=== PATIENT | female | born 1955 | race Caucasian/White ===

== ENCOUNTER → 2016-06-07 | Day surgery (SDC) | payer OTHER ==
[2016-06-06 13:54] VITALS: BMI 28.0
[~2016-06-07] VITALS: Ht 160 cm; Wt 72.7 kg
[~2016-06-07] MED LIST: ALBUAER19 INH; ALUMCHW2 PO; ASPITAB71 PO; FLUO40CA8 PO; FLUT1AER5 INH; LIDOCAINE HCL 2% 2 ML VIAL (20MG/ML) ONE; LIVALO PO; OXYC1CAP5 PO; PANT40TA PO; PROPOFOL IV EMULSION 10 MG/ML 20 ML VIAL IV ONE; RIZA10TA18 PO; SODIUM CHLORIDE 0.9% 500ML 500 ML IV ONE; TOPI25TA99 PO; TRAZ1TAB8 PO
[2016-06-07 08:54] VITALS: Ht 160 cm; Wt 72.7 kg
--- NOTE | 2016-06-07 09:55 | Endo History and Physical ---
History & Physical Date of Service: Jun 07, 2016. Chief Complaint: HEARTBURN AND ACID REFLUX Referring Physician: DR FERNANDEZ History of Present Illness 61 yo CF who presents for colonoscopy secondary to GERD. Past Medical History Asthma, Reflux, Depression Past Surgical History Hx Cardiac Surgery: No Hx Internal Defibrillator: No Hx Pacemaker: No Hx Abdominal Surgery: Yes (CARLOS, TUBAL LIGATION) Hx of Implantable Prosthesis: No Hx Post-Op Nausea and Vomiting: No Hx Cancer Surgery: No Hx Thoracic Surgery: Yes (LUNG BIOPSIES) Hx Orthopedic: Yes (BLT CTR, LT SHOULDER SX, CERVICAL FUSION (GOOD ROM)) Hx Urinary Tract Surgery: No Family History None, IBD Social History Smoking Status: Never Smoker Hx Substance Use: No Hx Alcohol Use: No Allergies Coded Allergies: Penicillins (Verified Allergy, Severe, ANAPHYLAXIS, 06/07/16) RASH,HIVES,BREATHING PROBLEMS Sulfa Drugs (Verified Allergy, Severe, ANAPHYLAXIS, 06/07/16) HIVES,BREATHING PROBLEMS Current Medications Reported Home Medications Medications Dose Route/Sig Max Daily Dose Days Date Category Topamax (Topiramate) 25 Mg Tab 25 Mg PO BID 06/06/16 Reported Protonix (Pantoprazole Sodium) 40 Mg Tab 40 Mg PO BID 06/06/16 Reported Gaviscon (Aluminum Hydroxide-Mag Trisil) 1 Chw Chw 1 Tab PO DIRECTED PRN 06/06/16 Reported [place] (Aspirin Effervescent) 1 Tab Tab 1 Tab PO DIRECTED PRN 06/06/16 Reported Ventolin Inhaler (Albuterol) Aers 2 Puffs INH QID PRN 04/21/15 Reported Flovent Diskus (Fluticasone Propionate (Inhala) 100 Mcg/Blist Aer 1 Puffs INH BID PRN 04/21/15 Reported Maxalt (Rizatriptan Benzoate) 10 Mg Tab 10 Mg PO UD PRN 04/21/15 Reported Oxycodone Hcl 5 Mg Cap 1 Cap PO QID PRN 04/21/15 Reported [Livalo] 4 Mg PO HS 04/21/15 Reported Desyrel (Trazodone Hcl) 100 Mg Tab 100 Mg PO HS 03/25/13 Reported Prozac (Fluoxetine HCl) 40 Mg Cap 40 Mg PO QAM 03/25/13 Reported Vital Signs Weight (Kilograms): 72.73 Height (Feet): 5 Height (Inches): 3 Date Time Temp Pulse Resp B/P Pulse Ox O2 Delivery O2 Flow Rate FiO2 06/07/16 09:05 36.5 74 18 164/72 98 Room Air Physical Exam General Appearance: WD/WN, no apparent distress Respiratory/Chest: Auscultation: breath sounds normal Cardiovascular: Heart Auscultation: RRR Abdomen: Bowel Sounds: normal Inspection & Palpation: soft, non-distended, no tenderness, guarding & rebound Assessment and Plan Assessment: 61 yo CF who presents for EGD secondary to GERD. Plan: Proceed with EGD.
--- NOTE | 2016-06-07 10:35 | Discharge Instructions ---
Endoscopy Patient Instructions Date / Procedure(s) Performed Jun 07, 2016. EGD Allergy Information Coded Allergies: Penicillins (Verified Allergy, Severe, ANAPHYLAXIS, 06/07/16) RASH,HIVES,BREATHING PROBLEMS Sulfa Drugs (Verified Allergy, Severe, ANAPHYLAXIS, 06/07/16) HIVES,BREATHING PROBLEMS Discharge Date / Findings Jun 07, 2016. Pyloric stenosis s/p biopsies Hiatal hernia Evidence of Cody Fundoplication Gastric polyps s/p biopsies Esophageal dilation Medication Instructions OK to resume all medications today as prescribed Reported Home Medications Medications Dose Route/Sig Max Daily Dose Days Date Category Topamax (Topiramate) 25 Mg Tab 25 Mg PO BID 06/06/16 Reported Protonix (Pantoprazole Sodium) 40 Mg Tab 40 Mg PO BID 06/06/16 Reported Gaviscon (Aluminum Hydroxide-Mag Trisil) 1 Chw Chw 1 Tab PO DIRECTED PRN 06/06/16 Reported [place] (Aspirin Effervescent) 1 Tab Tab 1 Tab PO DIRECTED PRN 06/06/16 Reported Ventolin Inhaler (Albuterol) Aers 2 Puffs INH QID PRN 04/21/15 Reported Flovent Diskus (Fluticasone Propionate (Inhala) 100 Mcg/Blist Aer 1 Puffs INH BID PRN 04/21/15 Reported Maxalt (Rizatriptan Benzoate) 10 Mg Tab 10 Mg PO UD PRN 04/21/15 Reported Oxycodone Hcl 5 Mg Cap 1 Cap PO QID PRN 04/21/15 Reported [Livalo] 4 Mg PO HS 04/21/15 Reported Desyrel (Trazodone Hcl) 100 Mg Tab 100 Mg PO HS 03/25/13 Reported Prozac (Fluoxetine HCl) 40 Mg Cap 40 Mg PO QAM 03/25/13 Reported Provider Instructions Activity Restrictions - No exercising or heavy lifting for 24 hours. - Do not drink alcohol the day of the procedure. - Do not drive a car or operate machinery until the day after the procedure. - Do not make any important decisions or sign important papers in 24 hours after the procedure. Following Day: - Return to full activity which may include returning to work/school. Diet Start your diet with liquids and light foods (jello, soup, juice, toast). Then eat your usual diet if not nauseated. Treatment For Common After Affects For mild abdominal pain, bloating, or excessive gas: - Rest - Eat lightly - Lie on right side Follow-Up Information Follow-up with DR FERNANDEZ as scheduled Anesthesia Information What You Should Know You have had a procedure that required some medicine to reduce anxiety and discomfort. This treatment is called moderate sedation. After receiving the treatment, you may be sleepy, but you will be able to breathe on your own. The effects of the treatment may last for several hours. Follow these instructions along with Activity/Diet recommendations noted above: * Do NOT do anything where dizziness or clumsiness would be dangerous. * Rest quietly at home today, then you can be up and about tomorrow. * Have a responsible person stay with you the rest of today. * You may have had an I.V. today. If so, you may take the dressing off later today. Recommendations Call your doctor if: * Trouble breathing * Continuous vomiting for more than 24 hours * Temperature above 101 degrees * Severe abdominal pain or bloating * Pain not relieved by pain medicine ordered * There is increased drainage or redness from any incision * A large amount of rectal bleeding greater than 2-3 tablespoons. (If you had a polyp/s removed or have hemorrhoids, a small amount of blood - from the rectum is to be expected.) * You have any unanswered questions or concerns. IN THE EVENT OF A SERIOUS EMERGENCY, GO TO THE NEAREST EMERGENCY ROOM Your discharge instructions were prepared by provider Chang Keller. Patient Instructions Signature Page Gabriela Veloz Patient (or Guardian) Signature/Date: I have read and understand the instructions given to me by my caregivers. Caregiver/RN/Doctor Signature/Date: The above-named patient and/or guardian has received patient instructions on this date. + Original Patient Signature Page (only) stays with chart. Please make copy for patient.
--- NOTE | 2016-06-07 10:45 | GI REPORT ---
Procedure Date: 06/07/2016 9:59 AM Procedure: Upper GI endoscopy Indications: Epigastric abdominal pain, Esophageal reflux Medicines: Monitored Anesthesia Care Complications: No immediate complications. Estimated Blood Loss: Estimated blood loss: none. Procedure: Pre-Anesthesia Assessment: - Prior to the procedure, a History and Physical was performed, and patient medications and allergies were reviewed. The patient's tolerance of previous anesthesia was also reviewed. The risks and benefits of the procedure and the sedation options and risks were discussed with the patient. All questions were answered, and informed consent was obtained. Prior Anticoagulants: The patient has taken no previous anticoagulant or antiplatelet agents. ASA Grade Assessment: II - A patient with mild systemic disease. After reviewing the risks and benefits, the patient was deemed in satisfactory condition to undergo the procedure. After obtaining informed consent, the endoscope was passed under direct vision. Throughout the procedure, the patient's blood pressure, pulse, and oxygen saturations were monitored continuously. The scope was introduced through the mouth, and advanced to the second part of duodenum. The upper GI endoscopy was accomplished without difficulty. The patient tolerated the procedure well. Findings: The examined esophagus was normal. A TTS dilator was passed through the scope. Dilation with a 15-16.5-18 mm balloon (to a maximum balloon size of 18 mm) dilator was performed. The dilation site was examined and showed no change. A small hiatus hernia was present. Evidence of a Cody fundoplication was found in the cardia (on retroflexion). The wrap appeared tight. This was traversed. A few 4 to 8 mm sessile polyps with no stigmata of recent bleeding were found in the gastric body. Biopsies were taken with a cold forceps for histology. A benign-appearing, intrinsic moderate stenosis was found at the pylorus. This was traversed. A TTS dilator was passed through the scope. Dilation with a 15-16.5-18 mm balloon (to a maximum balloon size of 16.5 mm) dilator was performed. The dilation site was examined and showed moderate improvement in luminal narrowing. The examined duodenum was normal. Impression: - Normal esophagus. Dilated. - Small hiatus hernia. - A Cody fundoplication was found. The wrap appears tight. - A few gastric polyps. Biopsied. - Gastric stenosis was found at the pylorus. Dilated. - Normal examined duodenum. Recommendation: - Resume previous diet. - Continue present medications. - Await pathology results. - Return to GI office as previously scheduled. Chang Keller, DO 06/07/2016 10:44:41 AM This report has been signed electronically. Note Initiated On: 06/07/2016 9:59 AM
[2016-06-07 11:18] VITALS: BP 158/69; PULSE 68; O2SAT 100
--- NOTE | 2016-06-07 11:21 | Anesthesiology Progress Note ---
Anesthesia Post Op Note Date & Time Jun 07, 2016 at 11:21 Vital Signs Pain Intensity: 0 Vital Signs Past 12 Hours Date Time Temp Pulse Resp B/P Pulse Ox O2 Delivery O2 Flow Rate FiO2 06/07/16 11:11 74 18 149/69 100 Room Air 06/07/16 10:48 74 18 140/68 100 Room Air 06/07/16 10:33 78 18 133/62 100 Room Air 06/07/16 09:05 36.5 74 18 164/72 98 Room Air Notes Mental Status: alert / awake / arousable, participated in evaluation Pt Amnestic to Procedure: Yes Nausea / Vomiting: adequately controlled Pain: adequately controlled Airway Patency, RR, SpO2: stable & adequate BP & HR: stable & adequate Hydration State: stable & adequate Anesthetic Complications: no major complications apparent
== END | disposition home or self-care (01) ==
LOC: C.GI 08:31
PROVIDERS: ATTEND Internal Medicine
DX: R10.13 Epigastric pain (principal); K44.9 Diaphragmatic hernia without obstruction or gangrene; K31.7 Polyp of stomach and duodenum; F32.9 Major depressive disorder, single episode, unspecified; K31.1 Adult hypertrophic pyloric stenosis; Z88.0 Allergy status to penicillin; Z88.2 Allergy status to sulfonamides; J45.909 Unspecified asthma, uncomplicated; Z98.890 Other specified postprocedural states

== ENCOUNTER → 2017-02-07 | Outpatient (CLI) | payer OTHER ==
[~2017-02-07] MED LIST changes: -LIDOCAINE HCL 2% 2 ML VIAL (20MG/ML) ONE; -PROPOFOL IV EMULSION 10 MG/ML 20 ML VIAL IV ONE; -SODIUM CHLORIDE 0.9% 500ML 500 ML IV ONE
[2017-02-07 13:11] LABS: BASO % 0.5 %; BASO ABS # 0.02 K/uL (0-0.2); COMPLETE YES; HEMATOCRIT 42.5 % (37-47); IG% 0.2 %; LYMPH % 27.4 %; LYMPH ABS # 1.12 K/uL (1.2-3.4); MEAN CELL VOLUME 81.3 fL (80-100); MEAN CORPUSCULAR HEMOGLOBIN 27.2 pg (25-34); MEAN CORPUSCULAR HGB CONC 33.4 g/dl (32-36); MEAN PLATELET VOLUME 10.1 fL (7.4-10.4); MONO % 6.4 %; NEUT % 64.5 %; PLATELET COUNT 233 K/uL (130-400); RED BLOOD COUNT 5.23 M/uL (4.2-5.4); WHITE BLOOD COUNT 4.09 K/uL (4.8-10.8)
[2017-02-07 13:45] LABS: ALT/SGPT 31 U/L (12-78); AST/SGOT 25 U/L (15-37); BLOOD UREA NITROGEN 13 mg/dl (7-18); BUN/CREATININE RATIO 13.2 (10-20); CALCIUM 9.6 mg/dl (8.5-10.1); CARBON DIOXIDE 28 mmol/L (21-32); CHLORIDE 105 mmol/L (98-107); CHOLESTEROL 198 mg/dl (0-200); CREATININE 0.97 mg/dl (0.60-1.20); GLUCOSE 100 mg/dl (70-99); POTASSIUM 3.8 mmol/L (3.5-5.1); SODIUM 141 mmol/L (136-145); TRIGLYCERIDES 142 mg/dl (0-150); VERY LOW DENSITY LIPOPROT CALC 28 mg/dl
[2017-02-07 13:54] LABS: CHOLESTEROL/HDL RATIO 4.1; HDL CHOLESTEROL 48 mg/dl; LDL CHOLESTEROL CALCULATED 122 mg/dl; TOTAL IRON BINDING CAPACITY 429 mcg/dl (250-450)
== END | disposition home or self-care (01) ==
LOC: C.LABMFLN 09:54
PROVIDERS: ATTEND Family Medicine
DX: E53.8 Deficiency of other specified B group vitamins (principal); D50.9 Iron deficiency anemia, unspecified; E78.5 Hyperlipidemia, unspecified; E55.9 Vitamin D deficiency, unspecified; I10 Essential (primary) hypertension

== ENCOUNTER → 2017-09-26 | Outpatient (CLI) | payer OTHER ==
[~2017-09-26] MED LIST changes: -ALBUAER19 INH; -ALUMCHW2 PO; -ASPITAB71 PO; +CYCL5TAB PO; -FLUT1AER5 INH; -LIVALO PO; -OXYC1CAP5 PO; +PITA1TAB19 PO; +PROP10TA7 PO; -TOPI25TA99 PO; +TRAZ100T29 PO; -TRAZ1TAB8 PO; +VNTHFA/IN INH
[2017-09-26 12:43] LABS: BASO % 0.3 %; BASO ABS # 0.01 K/uL (0-0.2); EOS % 1.1 %; EOS ABS # 0.04 K/uL (0-0.5); HEMATOCRIT 40.6 % (37-47); HEMOGLOBIN 13.3 g/dL (12.0-16.0); IG# 0.01 K/uL (0.00-0.02); LYMPH % 32.2 %; LYMPH ABS # 1.19 K/uL (1.2-3.4); MEAN CORPUSCULAR HEMOGLOBIN 26.9 pg (25-34); MEAN CORPUSCULAR HGB CONC 32.8 g/dl (32-36); MEAN PLATELET VOLUME 9.8 fL (7.4-10.4); MONO % 7.3 %; MONO ABS # 0.27 K/uL (0.11-0.59); NEUT % 58.8 %; NEUT ABS # 2.17 K/uL (1.4-6.5); PLATELET COUNT 236 K/uL (130-400); RED CELL DISTRIBUTION WIDTH CV 13.3 % (11.5-14.5); WHITE BLOOD COUNT 3.69 K/uL (4.8-10.8)
[2017-09-26 13:21] LABS: ALT/SGPT 33 U/L (12-78); AST/SGOT 28 U/L (15-37); BLOOD UREA NITROGEN 14 mg/dl (7-18); CALCIUM 8.9 mg/dl (8.5-10.1); CARBON DIOXIDE 29 mmol/L (21-32); CHOLESTEROL 207 mg/dl (0-200); CREATININE 0.94 mg/dl (0.60-1.20); GLUCOSE 104 mg/dl (70-99); LDL CHOLESTEROL CALCULATED 134 mg/dl; SODIUM 140 mmol/L (136-145)
== END | disposition home or self-care (01) ==
LOC: C.LABMFLN 09:55
PROVIDERS: ATTEND Family Medicine
DX: E53.8 Deficiency of other specified B group vitamins (principal); E50.9 Vitamin A deficiency, unspecified; E78.5 Hyperlipidemia, unspecified; E55.9 Vitamin D deficiency, unspecified; I10 Essential (primary) hypertension; G43.009 Migraine without aura, not intractable, without status migrainosus

== ENCOUNTER 2022-12-29 05:53 | Inpatient (IN) ==
--- NOTE | 2022-11-30 12:27 | Anesthesiology Consultation ---
Date of Service November 30, 2022 Assessment & Plan (1) Encounter for pre-operative examination: Chart Review Chart Review: Pending: Refer to Additional Notes / Consult section (pending PCP clearance and PCP response regarding abnormal 2020 ECHO ) and Patient NOT seen in Pre Admission Testing - Awaiting PCP clearance 12/05/22 - Discussed [address] Roberts- recommends either repeat ECHO or cardio clearance prior to surgery due to possibility of HOCM- did send urgent workload message to PCP inquiring if they would order repeat ECHO or if patient needs set up for cardio clearance - Check BSG AM DOS -COVID screening: Per PAT nursing assessment on 11/30/22. No known COVID-19 positive contacts or current COVID-19 related symptoms. Travel screen negative. Patient vaccinated for Covid. At surgeon discretion if preop Covid testing being done. History Surgery Operation Date: 12/07/22 12:55 Proposed Procedures p L4-S1 Decompression and Fusion, Spinal Cord Monitoring - Magno Gonzales, Height/Weight Height: 5 ft 3 in Weight: 70.307 kg Allergies Allergy/AdvReac Type Severity Reaction Status Date / Time Penicillins Allergy Severe ANAPHYLAXIS Verified 11/30/22 10:17 Sulfa (Sulfonamide Allergy Severe ANAPHYLAXIS Verified 11/30/22 10:17 Antibiotics) sulfamethoxazole Allergy Intermediate Hives Verified 11/30/22 10:17 [From Bactrim] trimethoprim [From Bactrim] Allergy Intermediate Hives Verified 11/30/22 10:17 simvastatin [From Zocor] AdvReac Intermediate Gastrointestinal Verified 11/30/22 10:17 Upset atorvastatin [From Lipitor] AdvReac Mild Gastrointestinal Verified 11/30/22 10:17 Upset colesevelam [From WelChol] AdvReac Mild Gastrointestinal Verified 11/30/22 10:17 Upset duloxetine [From Cymbalta] AdvReac Mild Anxiety Verified 11/30/22 10:17 ezetimibe [From Zetia] AdvReac Mild Gastrointestinal Verified 11/30/22 10:17 Upset fluvastatin [From Lescol] AdvReac Mild Gastrointestinal Verified 11/30/22 10:17 Upset lovastatin AdvReac Mild Gastrointestinal Verified 11/30/22 10:17 Upset rosuvastatin [From Crestor] AdvReac Mild Gastrointestinal Verified 11/30/22 10:17 Upset Medications Home Medications Medication Instructions Recorded Confirmed Last Taken blood sugar diagnostic (SamanthaTouch #100 ea 11/07/18 11/30/22 Unknown Ultra Blue Test Strip) lancets 33 gauge (Aida Delica #100 ea 11/07/18 11/30/22 Unknown Plus Lancet) rizatriptan 10 mg tablet (Maxalt) 10 mg PO DAILY PRN Migraine 10/18/19 11/30/22 08/09/22 Headache fluoxetine 20 mg tablet 40 mg PO BID #360 tabs 06/09/22 11/30/22 08/10/22 cyclobenzaprine 5 mg tablet 5 mg PO TID PRN muscle spasm #90 06/29/22 11/30/22 08/10/22 tabs tramadol 50 mg tablet 50 mg PO Q6H PRN pain #120 tabs 06/29/22 11/30/22 08/09/22 clopidogrel 75 mg tablet 75 mg PO QPM 08/05/22 11/30/22 08/05/22 ezetimibe 10 mg tablet 10 mg PO QPM 08/05/22 11/30/22 08/10/22 losartan 100 mg tablet 100 mg PO QPM 08/05/22 11/30/22 08/10/22 pantoprazole 40 mg tablet,delayed 40 mg PO QPM 08/05/22 11/30/22 08/10/22 release pitavastatin calcium 4 mg tablet 4 mg PO HS 08/05/22 11/30/22 08/10/22 cyanocobalamin (vitamin B-12) 1,000 mcg UD 11/30/22 11/30/22 Unknown 1,000 mcg/mL injection syringe Past Medical History Medical History AC joint pain bilateral Benign essential hypertension Chronic diarrhea occ incontinence Chronic GERD Controlled type 2 diabetes mellitus diet/no meds Depression Dysphagia improved- egd with dilation -2022 Esophageal stricture Fibromyalgia History of asthma well controlled > NO INHALERS History of CVA (cerebrovascular accident) December 2020, numbness on right side. Taken to [facility]. No residual. Follows with PCP Hx of sarcoidosis PCP monitors (LUNGS) Hyperlipidemia Idiopathic osteoporosis Lipoma right thigh Lung nodule, solitary pcp monitor with CT scans Migraines hx Paraesophageal hernia Sacroiliac joint dysfunction of right side Past Family History Family History Mother Myocardial infarction Sister Diabetes Hypertension Other No family history of adverse response to anesthesia Past Surgical History Surgical History History of carpal tunnel release bilateral History of colonoscopy History of esophagogastroduodenoscopy (EGD) History of foot surgery left History of fundoplication History of lung biopsy left due to sarccoidosis> no issues for many yrs History of neck surgery spacer placed C5-6> ROM somewhat limited History of shoulder surgery rt/left RCR History of tooth extraction History of tubal ligation Hx of cholecystectomy Social History Smoking Status: Never smoker Do You Dip or Chew Tobacco: No Hx Alcohol Use: No Hx Substance Use: No substance use type: does not use Lab Results Anesthesia Preop Results Results Anesthesia Widget: WBC 5.28 K/ul (4.8-10.8) 11/28/22 Hgb 14.0 g/dl (12.0-16.0) 11/28/22 Hct 43.0 % (37.0-47.0) 11/28/22 Plt 245 K/uL (130-400) 11/28/22 Na 138 mmol/L (136-145) 11/28/22 K 3.7 mmol/L (3.5-5.1) 11/28/22 Cl 107 mmol/L (98-107) 11/28/22 CO2 25 mmol/L (21-32) 11/28/22 BUN 13 mg/dl (6-23) 11/28/22 Creat 0.89 mg/dl (0.6-1.2) 11/28/22 Glucose Level 169 mg/dl (70-99(Fasting)) H 11/28/22 PT 10.6 Seconds (9.0-12.0) 11/28/22 PTT 25.9 Seconds (21.0-31.0) 11/28/22 INR 1.0 (0.9-1.1) 11/28/22 Urine Color Yellow 11/28/22 Urine Appearance Clear (Clear) 11/28/22 Urine pH 5.5 (4.5-7.5) 11/28/22 Urine Specific Mcdonald 1.005 (1.000-1.030) 11/28/22 Urine Protein Negative (Negative) 11/28/22 Urine Glucose (UA) Negative (Negative) 11/28/22 Urine Ketones Negative (Negative) 11/28/22 Urine Blood Negative (Negative) 11/28/22 Urine Nitrite Negative (Negative) 11/28/22 Urine Bilirubin Negative (Negative) 11/28/22 Urine Urobilinogen Negative (Negative) 11/28/22 Urine Leukocyte Esterase Negative (Negative) 11/28/22 Blood Type O Positive 11/28/22 Antibody Screen NEGATIVE 11/28/22 Testing Laboratory Results 11/28/22= URINE CULTURE: Three types of organisms present, all low counts probable skin yonathan Electrocardiogram Date: 11/28/22 Findings: + NSR @ (93bpm ) Diffuse minor nonspecific T wave abnormality When compared to EKG from Mar 25, 2013- nonspecific T wave abnormality, worse in lateral leads per cardio Chest X-Ray Date: 11/28/22 FINDINGS: Chronic interstitial coarsening with postoperative changes of the right upper lung. No pneumothorax, large pleural effusion, or overt pulmonary edema or lobar airspace consolidation. Eventration of the right hemidiaphragm. Surgical clips project over the upper abdomen. Bones appear grossly intact. Cervical spinal fusion hardware. With body within the right subscapularis recess. IMPRESSION: 1. Chronic interstitial coarsening. 2. Surgical suture material of the right upper lung with ill-defined right upper lung opacities, likely representing scarring. Echocardiogram Date: 12/22/20 EF: >70% RWMA: + none Other Findings: + diastolic dysfunction (Grade I) Valvular Disease: + no significant valvular disease Qualitative LVEF >70% Asymmetric LVH involving the basal septum. The basal septal thickness is 1.6- 1.7cm. Inducible peak instantaneous LVOT gradient 55mmHg. Would consider cardiac MRI for evaluation of possible HOCM RV cavity size is noraml. RV systolic function is qualitatively normal Negative bubble study suggestion absence of ASD/PFO.
[2022-12-29] MEDS ORDERED: ACETAMINOPHEN 500 MG TAB PO SCH (06:00)
[2022-12-29] MEDS ORDERED: LR 60ML/HR IV SCH (06:00)
[2022-12-29] MEDS ORDERED: 600mg Preop IV SCH (06:00)
[2022-12-29] MEDS ORDERED: LR 15ML/HR IV SCH (06:00)
[2022-12-29] MEDS ORDERED: GABAPENTIN 300 MG CAP PO SCH (06:00)
[2022-12-29] MEDS ORDERED: 300mg Preop IV SCH (06:00)
[2022-12-29] MEDS ORDERED: ceFAZolin 330 MG/ML 1 GM VIAL ONE (07:05)
[2022-12-29] MEDS ORDERED: BUPIVACAINE/EPINEPHRINE 0.25% 1:200,000 30 ML VIAL ONE (07:05)
[2022-12-29] MEDS ORDERED: ATROPINE SULFATE 0.1 MG/ML 10ML SYR IV PRN (07:18)
[2022-12-29] MEDS ORDERED: ePHEDrine sulfate 50 MG/ML AMP IV PRN (07:18)
[2022-12-29] MEDS ORDERED: PROPOFOL IV EMULSION 10 MG/ML 20 ML VIAL IV ONE (07:41)
[2022-12-29] MEDS ORDERED: GLYCOPYRROLATE 0.2 MG/ML VIAL ONE (07:41)
[2022-12-29] MEDS ORDERED: LIDOCAINE 2% 2 ML VIAL/AMP(20MG/ML) INFIL ONE (07:41)
[2022-12-29] MEDS ORDERED: NEOSTIGMINE METHYLSULFATE 1 MG/ML 10ML VIAL ONE (07:41)
[2022-12-29] MEDS ORDERED: ONDANSETRON INJ 2 MG/ML 2 ML VIAL ONE (07:41)
[2022-12-29] MEDS ORDERED: DEXAMETHASONE SOD INJ 4 MG/ML VIAL ONE ×2 (07:41→08:43)
[2022-12-29] MEDS ORDERED: MIDAZOLAM HCL 1 MG/ML 2ML VIAL ONE (07:41)
--- NOTE | 2022-12-29 07:41 | History & Physical Bridge Note ---
Date of Service December 29, 2022 History & Physical Bridge Note I have examined the patient, reviewed the History & Physical and in the interval since the performance of the History & Physical I have noted the following changes of clinical significance: no changes noted
[2022-12-29] MEDS ORDERED: fentaNYL citrate PF 100 MCG/2 ML VIAL ONE ×2 (07:42)
--- NOTE | 2022-12-29 07:42 | History & Physical Report ---
Date of Service December 29, 2022 Assessment & Plan (1) Lumbar radiculopathy: Plan: L4-S1 decompression and fusion History of Present Illness Chief Complaint: Back and leg pain Primary Care Provider: Brennen Romero MD This is a 59-year-old female presents with chronic persistent back and leg pain after failing course of nonoperative care she is here for surgical intervention. Allergies Allergy/AdvReac Type Severity Reaction Status Date / Time Penicillins Allergy Severe ANAPHYLAXIS Verified 12/29/22 06:17 Sulfa (Sulfonamide Allergy Severe ANAPHYLAXIS Verified 12/29/22 06:17 Antibiotics) sulfamethoxazole Allergy Intermediate Hives Verified 12/29/22 06:17 [From Bactrim] trimethoprim [From Bactrim] Allergy Intermediate Hives Verified 12/29/22 06:17 simvastatin [From Zocor] AdvReac Intermediate Gastrointestinal Verified 12/29/22 06:17 Upset atorvastatin [From Lipitor] AdvReac Mild Gastrointestinal Verified 12/29/22 06:17 Upset colesevelam [From WelChol] AdvReac Mild Gastrointestinal Verified 12/29/22 06:17 Upset duloxetine [From Cymbalta] AdvReac Mild Anxiety Verified 12/29/22 06:17 ezetimibe [From Zetia] AdvReac Mild Gastrointestinal Verified 12/29/22 06:17 Upset fluvastatin [From Lescol] AdvReac Mild Gastrointestinal Verified 12/29/22 06:17 Upset lovastatin AdvReac Mild Gastrointestinal Verified 12/20/22 13:59 Upset rosuvastatin [From Crestor] AdvReac Mild Gastrointestinal Verified 12/20/22 13:59 Upset Home Medications Medication Instructions Recorded Confirmed Type blood sugar diagnostic (OneTouch #100 ea 11/07/18 12/20/22 Rx Ultra Blue Test Strip) lancets 33 gauge (OneTouch Delica #100 ea 11/07/18 12/20/22 Rx Plus Lancet) fluoxetine 20 mg tablet 40 mg PO BID #360 tabs 06/09/22 12/29/22 Rx cyclobenzaprine 5 mg tablet 5 mg PO TID PRN muscle spasm #90 06/29/22 12/29/22 Rx tabs clopidogrel 75 mg tablet 75 mg PO QPM 08/05/22 12/29/22 History pantoprazole 40 mg tablet,delayed 40 mg PO QPM 08/05/22 12/29/22 History release pitavastatin calcium 4 mg tablet 4 mg PO HS 08/05/22 12/29/22 History cyanocobalamin (vitamin B-12) 1,000 mcg UD 11/30/22 12/29/22 History 1,000 mcg/mL injection syringe metoprolol succinate 50 mg 50 mg PO DAILY #30 tabs 12/07/22 12/29/22 Rx tablet,extended release 24 hr rizatriptan 10 mg tablet (Maxalt) 10 mg PO DAILY PRN Migraine 12/13/22 12/29/22 Rx Headache #30 tabs tramadol 50 mg tablet See Rx Instructions PO Q6H PRN 12/13/22 12/29/22 Rx pain #240 tabs ezetimibe 10 mg tablet 10 mg PO .COMPLEX 12/20/22 12/29/22 History losartan 100 mg tablet 100 mg PO .COMPLEX 12/20/22 12/29/22 History Past Med/Surg History Medical History AC joint pain Benign essential hypertension Chronic diarrhea Chronic GERD Controlled type 2 diabetes mellitus Depression Dysphagia Esophageal stricture Fibromyalgia History of asthma History of CVA (cerebrovascular accident) HOCM (hypertrophic obstructive cardiomyopathy) Hx of sarcoidosis Hyperlipidemia Idiopathic osteoporosis Lipoma Lung nodule, solitary Migraines Paraesophageal hernia Sacroiliac joint dysfunction of right side Surgical History History of carpal tunnel release bilateral History of colonoscopy History of esophagogastroduodenoscopy (EGD) History of foot surgery left History of fundoplication History of lung biopsy left due to sarccoidosis> no issues for many yrs History of neck surgery spacer placed C5-6> ROM somewhat limited History of shoulder surgery rt/left RCR History of tooth extraction History of tubal ligation Hx of cholecystectomy Family History Mother Myocardial infarction Sister Diabetes Hypertension Other No family history of adverse response to anesthesia Social History Smoking Status: Never smoker Second Hand Exposure: Yes (HX-WORK); Do You Dip or Chew Tobacco: No; Tobacco Cessation Education Requested by Patient: No Hx Alcohol Use: No Hx Substance Use: No Preferred Language: Tunisian Communication Ability: Effective Visual Impairment: No Limitations Hearing Ability: Use of Hearing Aid Environmental Health Officer Required: No Beliefs That Will Affect Care: None marital status: Current Living Situation: Spouse current occupational status: retired Other Information That Helps Us Care for You: No Feels Safe at Home: Yes Safety Concerns: Feels Safe At This Time Childhood Exposure to Second-Hand Smoke: Yes caffeine: Yes Dental Care, Regularly: Yes Physical Activity Frequency: Does not Exercise Seatbelt Use: always Sunscreen Use: No Assistive Devices: Glasses and Hearing Aid - Bilateral Physical Exam Physical Exam: Patient is alert and oriented Heart regular in rhythm Lungs clear Results & Data Results & Data Vital Signs (Past 12 Hours) Vital Signs Temp Pulse Resp BP Pulse Ox O2 Del Method 12/29/22 06:22 37.0 C 87 18 181/76 H 96 Room Air
[2022-12-29] MEDS ORDERED: ePHEDrine sulfate 50 MG/ML AMP ONE (08:43)
[2022-12-29] MEDS ORDERED: FLOSEAL HEMOSTATIC MATRIX 10ML TOP ONE (09:36)
--- NOTE | 2022-12-29 09:45 | Operative Report ---
Post Operative Report Pre & Post Diagnosis Operation Date: 12/29/22 07:45 Pre-Op Diagnosis: Lumbar spinal stenosis with neurogenic claudication Post-Op Diagnosis: Same I identified the patient and participated in the time-out.: Yes Procedure Operation Date: 12/29/22 07:45 Actual Procedures 1. Lumbar decompression bilaterally facetectomies and foraminotomies L3-L4, L4- 5 and L5-S1.. 2 posterior spinal fusion L4-L5 L5-S1. #3 placed posterior instrumentation L4-S1. #4 interbody fusion L4-5 L5-S1. #5 placement of Spira 12 x 26 mm cage at L4-5 and 10 x 26 mm cage L5-S1. #6 placement of locally harvested morselized autograft posterior gutters. #7 placement I factor amount of the test interbody space and posterior gutters. Surgeon Magno Gonzales, Web Portal Developer Kandy Padilla Estimated Blood Loss 100 Findings Consistent with Post-Op Diagnosis Specimens none Indications This is a 59-year-old female who presents above-mentioned diagnosis after failing since course of nonoperative care is she is here for surgical invention. Description of Procedure Patient was met with identified informed consent obtained. Patient was then taken to the operative suite underwent a patient placed in a prone position on the [place] table top Yaakov frame. All bony prominences well-padded eyes inspected to ensure no external pressure placed upon the. This point lumbar spine was prepped and draped in a sterile fashion. Sharp dissection with the assistance of Bovie cautery form down to and exposing the lamina transverse processes of L4-5 and sacral ala bilaterally. From a caudal cephalad fashion complete laminectomy L5 L4 and partial laminectomy of L3 was performed including bilaterally facetectomies and foraminotomies addressing all spinal stenosis. Pedicle screws were then placed in L4-5 and S1 levels bilaterally with assistance of fluoroscopy and appropriate sized kaiden placed. By way the transforaminal approach on the right complete discectomy L5-S1 was performed endplates curetted to subcortically bone and a 10 x 26 mm Spira cage with I factor tapped in position. Then proceeded L4-[address] the transforaminal approach on the right complete discectomy performed endplates guided to subcortically bone and a 12 x 26 mm Spira cage with I factor tapped in position. The rods were then locked into final position bilaterally. Transverse processes of L4-5 and sacral ala burred to subcortical bleeding bone. I factor amount of the test and locally harvested morselized autograft was placed in the posterior lateral gutters. 15 round CLIVE drain inserted. The incision was then closed with 1 Vicryl the fascia 2-0 Vicryl subcutaneously and 4 Monocryl for final skin closure. Steri-Strips sterile dressing placed. Patient awakened taken to PACU in stable condition. Please note spinal cord monitoring was utilized at the procedure no changes noted. Lastly Kandy Padilla was present at the entire surgeon while the patient positioning complex portion of the surgery and final skin closure. I attest to the content of the Intraoperative Record and any orders documented therein. Any exceptions are noted below.
--- NOTE | 2022-12-29 10:01 | Fluoroscopy Report ---
FL lumbar spine 2-3V CLINICAL HISTORY: L4-S1 DECOMP/FUSION COMPARISON STUDY: Lumbar spine MRI September 17, 2019. Lumbar spine radiographs October 08, 2021. FLUOROSCOPY TIME: 25 seconds. porfirio De La Garza: 21.69 mGy FLUOROSCOPIC IMAGES: 2 FINDINGS: Fluoroscopy was provided during L4-L5 and L5-S1 discectomies with interbody spacer placemen t. Posterior decompression with bilateral pedicle screws at the L4, L5 and S1 levels is noted. Linear radiodensity projecting over the canal at the L4-L5 level is likely postsurgical. IMPRESSION: Fluoroscopy provided during L4-L5 and L5-S1 discectomies with posterior decompression an d bilateral pedicle screw fusion. ACT 112: Negative or not required by law. Electronically signed by: Rich Lewis M.D. 12/29/2022 10:00 AM
[2022-12-29] MEDS: HYDROmorphone INJ 2 MG/ML SYR/VIAL IV PRN ×2 (10:12→10:25)
[2022-12-29] MEDS ORDERED: PROMETHAZINE HCL 6.25 MG in SODIUM CHLORIDE 0.9% 50 ML IV STA (10:15)
[2022-12-29] MEDS ORDERED: PROMETHAZINE HCL INJ 25 MG/ML 1 ML VIAL ONE (10:16)
--- NOTE | 2022-12-29 11:05 | Anesthesiology Progress Note ---
Date of Service December 29, 2022 Anesthesia Post Procedure Vital Signs Vital Signs: Temp Pulse Pulse Resp BP Pulse Ox O2 Del Method 12/29/22 11:00 96 H 12 148/66 H 95 Nasal Cannula 12/29/22 10:50 36.5 C 96 H 14 142/68 H 95 Nasal Cannula 12/29/22 10:40 96 H 12 145/61 H 95 Nasal Cannula 12/29/22 10:30 95 H 17 161/73 H 92 Room Air 12/29/22 10:20 95 H 22 157/75 H 92 Room Air 12/29/22 10:10 98 H 23 132/77 98 Room Air 12/29/22 10:00 104 H 21 164/75 H 100 Nasal Cannula 12/29/22 09:51 36.2 C L 111 H 13 179/73 H 100 Nasal Cannula 12/29/22 06:22 37.0 C 87 18 181/76 H 96 Room Air O2 Flow Rate 12/29/22 11:00 2 12/29/22 10:50 2 12/29/22 10:40 2 12/29/22 10:30 12/29/22 10:20 12/29/22 10:10 12/29/22 10:00 3 12/29/22 09:51 3 12/29/22 06:22 Pain Intensity Back: Pain Intensity: 4 Transfer of Care Handoff Completed per policy Notes Mental Status: alert / awake / arousable Patient Amnestic to Procedure: Yes Nausea / Vomiting: adequately controlled Pain: adequately controlled Airway Patency, RR, SpO2: stable & adequate BP & HR: stable & adequate Hydration State: stable & adequate Anesthetic Complications: no major complications apparent and Pt Satisfied with anesthetic care
[2022-12-29] MEDS ORDERED: SOD PHOSPHATE/SOD BIPHOSPHATE ENEMA 132 ML BTL PR PRN (11:57)
[2022-12-29] MEDS ORDERED: LORazepam 2 MG/1 ML VIAL IV PRN (11:57)
[2022-12-29] MEDS ORDERED: bisacodyL 10 MG SUPP PR PRN (11:57)
[2022-12-29] MEDS ORDERED: MAGNESIUM HYDROXIDE SUSP 30 ML UDC PO PRN (11:57)
[2022-12-29] MEDS ORDERED: ONDANSETRON 4 MG OD TAB PO PRN (11:57)
[2022-12-29] MEDS ORDERED: DO NOT ADMINISTER FLU VACCINE PRN (11:57)
[2022-12-29] MEDS ORDERED: FAMOTIDINE 20 MG TAB PO PRN (11:57)
[2022-12-29] MEDS ORDERED: diphenhydrAMINE Capsule 25 MG CAP PO PRN (11:57)
[2022-12-29] MEDS ORDERED: LORazepam 0.5 MG TAB PO PRN (11:57)
[2022-12-29] MEDS ORDERED: hydrOXYzine HCl 25 MG TAB PO PRN (11:57)
[2022-12-29] MEDS ORDERED: DO NOT ADMINISTER PNEUMOCOCCAL VACCINE PRN (11:57)
[2022-12-29] MEDS ORDERED: PROMETHAZINE HCL 12.5 MG in SODIUM CHLORIDE 0.9% 50 ML IV PRN (11:57)
[2022-12-29] MEDS ORDERED: NALOXONE HCL 0.4 MG/1 ML VIAL/CARP IV PRN (11:57)
[2022-12-29] MEDS ORDERED: ACETAMINOPHEN 1,000 MG/100 ML VIAL IV PRN (11:57)
[2022-12-29] MEDS ORDERED: RIZATRIPTAN BENZOATE 10 MG TAB PO PRN (11:57)
[2022-12-29] MEDS ORDERED: METOCLOPRAMIDE HCL INJ 5 MG/ML 2 ML VIAL IV PRN (11:57)
[2022-12-29] MEDS ORDERED: ONDANSETRON INJ 2 MG/ML 2 ML VIAL IV PRN (11:57)
[2022-12-29] MEDS ORDERED: ACETAMINOPHEN 500 MG TAB PO PRN (11:57)
[2022-12-29] MEDS ORDERED: HYDROmorphone INJ 0.5 MG/0.5 ML SYR IV PRN (11:57)
[2022-12-29] MEDS ORDERED: ALUMINUM/MAGNESIUM SUSP 30 ML UDC PO PRN (11:57)
[2022-12-29] MEDS ORDERED: oxyCODONE HCL IR 5 MG TAB (IMMEDIATE RELEASE) ONE (12:11)
[2022-12-29] MEDS: oxyCODONE HCL IR 5 MG TAB (IMMEDIATE RELEASE) PO PRN ×3 (12:12→19:47)
[2022-12-29] MEDS: LACTATED RINGER'S 1,000 ML IV SCH ×2 (13:25→22:14)
[2022-12-29] MEDS: traMADol HCL 50 MG TABLET PO PRN ×2 (13:39→18:24)
--- NOTE | 2022-12-29 13:50 | Hospitalist Consultation ---
Date of Consultation December 29, 2022 Assessment & Plan (1) Status post lumbar spinal fusion: -Pain control, perioperative abx, DVT PPX, and IV fluids per the primary team -Agree with am labs tomorrow, we will follow -Recommend restarting Plavix PAT when the primary team is comfortable from a bleeding risk perspective -Thank you for allowing us to participate in the care of this patient, please reach out with any questions or concerns -Medicine will continue to follow (2) HOCM (hypertrophic obstructive cardiomyopathy): -Follows with [facility] Cardiology -Awaiting outpatient Cardiac MRI for further assessment per last Cardiology Clinic note from 12/19 -Will continue her IV fluids as ordered for now due to EBL of 100 cc and wanting to avoid dehydration with possible HOCM -Holding dose of losartan today to avoid hypotension/preload reduction -Avoid dehydration -Continue metoprolol (3) History of CVA (cerebrovascular accident): -Would recommend restarting plavix PAT when the primary team is comfortable from a bleeding risk perspective (4) Controlled type 2 diabetes mellitus: -Currently diet controlled -Monitor BSG ACHS, goal is 110-160 -Will start with CF of 50 ACHS for now -Continue DMII diet (5) Benign essential hypertension: -Stable -Holding losartan today, will restart tomorrow with hold parameters to avoid hypotension (6) Hyperlipidemia: -Continue statin (7) Depression: -Continue fluoxetine (8) Chronic GERD: -Continue pantoprazole as already ordered by primary team Plan The patient was discussed wtih Dr. Ching at the time of the consult Supervising Physician Co-Signing Physician Notes I personally saw and examined the patient. I verified all laura points and agree with Beny Madera PA-C with the following exceptions and/or additions: 67 year old female POD#0 lumbar decompression O/E HS RRR, systolic murmur, Chest CTAB, Abdo SNT A/P HOCUM - continue metoprolol throughout perioperative period, holding losartan to day, can restart tomorrow as long as asymptomatic and sBP >120 Otherwise as above History of Present Illness Reason for Consultation: Post-op medical management Requesting Physician: Magno Gonzales DO Attending Physician: Dr. Prakash Ching History of Present Illness Gabriela is a 67 year old female with a PMH significant for possible hypertrophic cardiomyopathy (Follows with [facility]iology), previous CVA, mild intermittent asthma, HTN, and DMII who presented to the [facility] OR on 12/29 for L4- S1 Decompression and Fusion, Spinal Cord Monitoring with Dr. Gonzales. Per review of the patient's vitals, she was noted to be tachycardic at 112 and stable on 2L NC post-op. Per the operative report, EBL was listed as 100 cc and no reported intraoperative complications or anesthesia type. At the time of the exam the patient was sitting in bed in no acute distress. She states that she is feeling well post-op. She has mild-moderate pain at the procedure site but no other complaints. She does not use oxygen or CPAP at home. She did not take am medications prior to arrival today. Please refer to Dr. Ching's attestation for any changes to the treatment plan Allergies Allergy/AdvReac Type Severity Reaction Status Date / Time Penicillins Allergy Severe ANAPHYLAXIS Verified 12/29/22 06:17 Sulfa (Sulfonamide Allergy Severe ANAPHYLAXIS Verified 12/29/22 06:17 Antibiotics) sulfamethoxazole Allergy Intermediate Hives Verified 12/29/22 06:17 [From Bactrim] trimethoprim [From Bactrim] Allergy Intermediate Hives Verified 12/29/22 06:17 simvastatin [From Zocor] AdvReac Intermediate Gastrointestinal Verified 12/29/22 06:17 Upset atorvastatin [From Lipitor] AdvReac Mild Gastrointestinal Verified 12/29/22 06:17 Upset colesevelam [From WelChol] AdvReac Mild Gastrointestinal Verified 12/29/22 06:17 Upset duloxetine [From Cymbalta] AdvReac Mild Anxiety Verified 12/29/22 06:17 ezetimibe [From Zetia] AdvReac Mild Gastrointestinal Verified 12/29/22 06:17 Upset fluvastatin [From Lescol] AdvReac Mild Gastrointestinal Verified 12/29/22 06:17 Upset lovastatin AdvReac Mild Gastrointestinal Verified 12/20/22 13:59 Upset rosuvastatin [From Crestor] AdvReac Mild Gastrointestinal Verified 12/20/22 13:59 Upset Home Medications Medication Instructions Recorded Confirmed Type blood sugar diagnostic (Achieved.coTouch #100 ea 11/07/18 12/20/22 Rx Ultra Blue Test Strip) lancets 33 gauge (OneTouch Delica #100 ea 11/07/18 12/20/22 Rx Plus Lancet) fluoxetine 20 mg tablet 40 mg PO BID #360 tabs 06/09/22 12/29/22 Rx cyclobenzaprine 5 mg tablet 5 mg PO TID PRN muscle spasm #90 06/29/22 12/29/22 Rx tabs clopidogrel 75 mg tablet 75 mg PO QPM 08/05/22 12/29/22 History pantoprazole 40 mg tablet,delayed 40 mg PO QPM 08/05/22 12/29/22 History release pitavastatin calcium 4 mg tablet 4 mg PO HS 08/05/22 12/29/22 History cyanocobalamin (vitamin B-12) 1,000 mcg UD 11/30/22 12/29/22 History 1,000 mcg/mL injection syringe metoprolol succinate 50 mg 50 mg PO DAILY #30 tabs 12/07/22 12/29/22 Rx tablet,extended release 24 hr rizatriptan 10 mg tablet (Maxalt) 10 mg PO DAILY PRN Migraine 12/13/22 12/29/22 Rx Headache #30 tabs tramadol 50 mg tablet See Rx Instructions PO Q6H PRN 12/13/22 12/29/22 Rx pain #240 tabs ezetimibe 10 mg tablet 10 mg PO .COMPLEX 12/20/22 12/29/22 History losartan 100 mg tablet 100 mg PO .COMPLEX 12/20/22 12/29/22 History oxycodone 5 mg tablet 5 mg PO Q6H PRN pain #30 tabs 12/29/22 Rx tramadol 50 mg tablet 50 mg PO Q6H PRN pain, moderate 12/29/22 Rx #30 tabs Patient History Medical History AC joint pain Benign essential hypertension Chronic diarrhea Chronic GERD Controlled type 2 diabetes mellitus Depression Dysphagia Esophageal stricture Fibromyalgia History of asthma History of CVA (cerebrovascular accident) HOCM (hypertrophic obstructive cardiomyopathy) Hx of sarcoidosis Hyperlipidemia Idiopathic osteoporosis Lipoma Lung nodule, solitary Migraines Paraesophageal hernia Sacroiliac joint dysfunction of right side Surgical History (Updated 12/29/22 @ 14:12 by Beny Madera PA-C) History of carpal tunnel release bilateral History of colonoscopy History of esophagogastroduodenoscopy (EGD) History of foot surgery left History of fundoplication History of lung biopsy left due to sarccoidosis> no issues for many yrs History of neck surgery spacer placed C5-6> ROM somewhat limited History of shoulder surgery rt/left RCR History of tooth extraction History of tubal ligation Hx of cholecystectomy Family History Mother Myocardial infarction Sister Diabetes Hypertension Other No family history of adverse response to anesthesia Social History Smoking Status: Never smoker Second Hand Exposure: Yes (HX-WORK); Do You Dip or Chew Tobacco: No; Tobacco Cessation Education Requested by Patient: No Hx Alcohol Use: No Hx Substance Use: No Preferred Language: Jordanian Communication Ability: Effective Visual Impairment: No Limitations Hearing Ability: Use of Hearing Aid Mental Hygiene Consultant Required: No Beliefs That Will Affect Care: None marital status: Current Living Situation: Spouse current occupational status: retired Other Information That Helps Us Care for You: No Feels Safe at Home: Yes Safety Concerns: Feels Safe At This Time Childhood Exposure to Second-Hand Smoke: Yes caffeine: Yes Dental Care, Regularly: Yes Physical Activity Frequency: Does not Exercise Seatbelt Use: always Sunscreen Use: No Assistive Devices: Glasses and Hearing Aid - Bilateral Physical Exam Physical Exam: Physical Exam: General: In no acute distress, stated age, well-nourished, good hygiene, non- toxic appearing HEENT: Normocephalic, atraumatic, no scleral icterus, pupils around round, symmetrical, and reactive to light, NC currently in place, moist mucus membranes, trachea midline, no thyromegaly Chest/Pulm: No respiratory distress, symmetrical chest expansion, clear breath sounds throughout Cardiac: RRR, no murmurs noted Abdomen: Negative for ascites and bruising, normoactive bowel sounds, soft, non-tender to palpation throughout Musculoskeletal: Surgical site over the lumbar spine is currently wrapped and without signs of drainage, Symmetrical and without signs of acute trauma, upper and lower extremities with full ROM, no atrophy, spasticity, or flaccidity Extremities: Radial, dorsalis pedis, and posterior tibial pulses are intact and symmetrical, no edema noted in the BL LE's Skin: Warm, dry, no rashes , lesions, or scars noted Neuro: Alert and oriented to person, place, month, year, and president, no focal defects, no tremors noted Psych: No acute distress, calm and cooperative during the exam Results & Data Results & Data Vital Signs (Past 12 Hours) Vital Signs Temp Pulse Pulse Resp BP Pulse Ox O2 Del Method 12/29/22 12:00 112 H 21 116/66 94 Nasal Cannula 12/29/22 11:30 102 H 13 125/60 94 Nasal Cannula 12/29/22 11:00 96 H 12 148/66 H 95 Nasal Cannula 12/29/22 10:50 36.5 C 96 H 14 142/68 H 95 Nasal Cannula 12/29/22 10:40 96 H 12 145/61 H 95 Nasal Cannula 12/29/22 10:30 95 H 17 161/73 H 92 Room Air 12/29/22 10:20 95 H 22 157/75 H 92 Room Air 12/29/22 10:10 98 H 23 132/77 98 Room Air 12/29/22 10:00 104 H 21 164/75 H 100 Nasal Cannula 12/29/22 09:51 36.2 C L 111 H 13 179/73 H 100 Nasal Cannula 12/29/22 06:22 37.0 C 87 18 181/76 H 96 Room Air O2 Flow Rate 12/29/22 12:00 2 12/29/22 11:30 2 12/29/22 11:00 2 12/29/22 10:50 2 12/29/22 10:40 2 12/29/22 10:30 12/29/22 10:20 12/29/22 10:10 12/29/22 10:00 3 12/29/22 09:51 3 12/29/22 06:22 Laboratory Results Abnormal lab results 12/29/22 12/29/22 12/29/22 Range/Units 06:14 06:26 09:55 POC Glucose 147 H 190 H (70-99) mg/dl Crossmatch See Detail Diagnostic Findings Lumbar Spine X-Ray 12/29/22 00:00 FL lumbar spine 2-3V CLINICAL HISTORY: L4-S1 DECOMP/FUSION COMPARISON STUDY: Lumbar spine MRI September 17, 2019. Lumbar spine radiographs October 08, 2021. FLUOROSCOPY TIME: 25 seconds. Ka, r: 21.69 mGy FLUOROSCOPIC IMAGES: 2 FINDINGS: Fluoroscopy was provided during L4-L5 and L5-S1 discectomies with interbody spacer placement. Posterior decompression with bilateral pedicle screws at the L4, L5 and S1 levels is noted. Linear radiodensity projecting over the canal at the L4-L5 level is likely postsurgical. IMPRESSION: Fluoroscopy provided during L4-L5 and L5-S1 discectomies with posterior decompression and bilateral pedicle screw fusion. ACT 112: Negative or not required by law. Electronically signed by: Rich Lewis M.D. 12/29/2022 10:00 AM PG Care Time/CCT Total # of Minutes Spent Total Time Spent with Patient: Total time spent is greater than 50% in coordination of care (as documented) at patient's floor/unit and/or counseling patient: Coding [place] [address] IN/OBS CONSULT LVL 4,60M Patient Type Established Medical Decision Making High Complexity Diagnoses Status post lumbar spinal fusion Z98.1 HOCM (hypertrophic obstructive cardiomyopathy) I42.1 History of CVA (cerebrovascular accident) Z86.73 Controlled type 2 diabetes mellitus E11.9 Benign essential hypertension I10 Hyperlipidemia E78.5 Depression F32.9 Chronic GERD K21.9
[2022-12-29] MEDS ORDERED: GLUCOSE 10 TAB/TUBE PO PRN (13:53)
[2022-12-29] MEDS ORDERED: DEXTROSE 50% 50 ML SYRINGE IV PRN (13:53)
[2022-12-29] MEDS ORDERED: CARBOHYDRATES FOR HYPOGLYCEMIA PO PRN (13:53)
[2022-12-29] MEDS ORDERED: GLUCOSE 40% GEL 15 GM TUBE PO PRN (13:53)
[2022-12-29] MEDS ORDERED: GLUCAGON FOR INJ 1 MG VIAL SQ PRN (13:53)
[2022-12-29] MEDS ORDERED: LOSARTAN POTASSIUM 50 MG TAB PO SCH (14:00)
[2022-12-29] MEDS ORDERED: FLUoxetine HCL 20 MG CAP PO SCH (14:00)
[2022-12-29] MEDS ORDERED: Nursing to Pharmacy Communication SCH (14:30)
[2022-12-29] MEDS ORDERED: METOPROLOL SUCC 50MG EXT REL TAB PO STA (14:35)
[2022-12-29] MEDS: EZETIMIBE 10 MG TAB PO SCH (14:50)
[2022-12-29] MEDS: FLUoxetine HCL 20 MG CAP PO SCH ×2 (14:51→20:04)
[2022-12-29] MEDS: CLINDAMYCIN/D5W 600 MG/50 ML BAG IV SCH ×2 (15:59→23:35)
[2022-12-29] MEDS: INSULIN ASPART PER UNIT CHARGE SC SCH ×2 (17:11→21:18)
[2022-12-29] MEDS: PANTOprazole 40 MG TAB PO SCH (20:03)
[2022-12-29] MEDS: DOCUSATE SODIUM/SENNA 50/8.6MG TAB PO SCH (20:03)
[2022-12-29] MEDS: HYDROmorphone INJ 1 MG/ML SYRINGE IV PRN (23:32)
[2022-12-30] MEDS: oxyCODONE HCL IR 5 MG TAB (IMMEDIATE RELEASE) PO PRN ×3 (03:04→23:36)
[2022-12-30] MEDS: HYDROmorphone INJ 1 MG/ML SYRINGE IV PRN ×4 (03:46→13:08)
[2022-12-30] MEDS: POLYETHYLENE (MIRALAX) 17 GM PACK PO SCH ×4 (05:36→23:37)
[2022-12-30] MEDS: LACTATED RINGER'S 1,000 ML IV SCH (06:07)
[2022-12-30 08:05] LABS: Basophils # (auto) 0.01 K/uL (0.00-0.20); Basophils % (auto) 0.1 %; Eosinophils # (auto) 0.02 K/uL (0.00-0.50); Eosinophils % (auto) 0.2 %; Hematocrit (blood only) 34.7 % (37.0-47.0); Hemoglobin 11.4 g/dl (12.0-16.0); Immature Granulocytes # (auto) 0.03 K/uL (0.01-0.20); Immature Granulocytes % (auto) 0.4 %; Lymphocytes # (auto) 1.79 K/uL (1.20-3.40); Lymphocytes % (auto) 21.3 %; Mean Corpuscular Hemoglobin 27.1 pg (25.0-34.0); Mean Corpuscular Hgb Conc 32.9 g/dL (32.0-36.0); Mean Corpuscular Volume 82.6 fL (80.0-100.0); Mean Platelet Volume 10.2 fL (9.4-12.4); Monocytes # (auto) 0.71 K/uL (0.11-0.59); Monocytes % (auto) 8.5 %; Neutrophils # (auto) 5.84 K/uL (1.40-6.50); Neutrophils % (auto) 69.5 %; Platelet Count 227 K/uL (130-400); RDW Coefficient of Variation 13.2 % (11.5-14.5); RDW Standard Deviation 39.9 fL (36.4-46.3)
--- NOTE | 2022-12-30 08:11 | Hospitalist Progress Note ---
Date of Service December 30, 2022 Assessment & Plan (1) Status post lumbar spinal fusion: Plan: POD#1 s/p 1. Lumbar decompression bilaterally facetectomies and foraminotomies L3-L4, L4-5 and L5-S1.. 2 posterior spinal fusion L4-L5 L5-S1. #3 placed posterior instrumentation L4-S1. #4 interbody fusion L4-5 L5-S1. #5 placement of Spira 12 x 26 mm cage at L4-5 and 10 x 26 mm cage L5-S1. #6 placement of locally harvested morselized autograft posterior gutters. #7 placement I factor amount of the test interbody space and posterior gutters. with Dr Gonzales on 12/29. WBC wnl, afebrile On decadron IV daily Hgb 14--> 11.4, suspect acute blood loss anemia from surgery as well as dilutional on continued IVF. IVF discontinued this morning EBL 100cc, CLIVE output 245cc Pain control/bowel regimen/PT/OT/DVT prophylaxis per primary service Rec resuming plavix as soon as possible when bleeding risk acceptable by primary service (2) HOCM (hypertrophic obstructive cardiomyopathy): Plan: Follows with [facility] Cardiology Awaiting outpatient Cardiac MRI for further assessment per last Cardiology Clinic note from 12/19 IVF continued through this morning given EBL/avoid dehydration/possible HOCM Losartan to be resumed this afternoon -- BP 123/68 (hold parameters if systolic BP <120) Continue metoprolol Monitor (3) History of CVA (cerebrovascular accident): Plan: Would recommend restarting plavix PAT when the primary team is comfortable from a bleeding risk perspective (4) Controlled type 2 diabetes mellitus: Plan: A1c 6.8 on last check, diet controlled BSG AC/HS while inpatient, BSGs acceptable and will monitor on SSI while inpatient Continue DM diet Monitor BSGs (5) Benign essential hypertension: Plan: Stable , improved remains on metoprolol, losartan to resume today w/ hold parameters to hold SBP <120, currently 123/68 (6) Hyperlipidemia: Plan: Continue statin (7) Depression: Plan: Continue fluoxetine (8) Chronic GERD: Plan: Continue pantoprazole as already ordered by primary team Plan Thank you for allowing hospitalist service to participate in the care of Ms Veloz. Hospitalist service will follow along. Please call with questions/concerns in meantime Admission and Anticipated Discharge Date Admission Date: December 29, 2022 Supervising Physician Co-Signing Physician Notes The patient was not seen by me. The chart was reviewed. Case discussed with LILIAN Thomas. Agree with assessment and plan Subjective Evaluated this morning, doing well. This is her first back surgery, reporting improvement in her LE symptoms, but pain from surgery itself. Pain currently rated 6/10, just received dilaudid and monitoring. +BS but not passing gas. Discussed aggressive bowel regimen. Once eval by therapy, hopeful removal of her jean-baptiste catheter. To monitor for any retention/UTI symptoms. No fever/chills, chest pain, shortness of breath, nausea or vomiting at present. Anticipating discharge Monday vs Monday per discussion with Dr Gonzales/patient. Questions/concerns addressed at this time. Review of Systems Review of Systems: All systems reviewed & are unremarkable except as noted in HPI & below Physical Exam Physical Exam: General: WD/WN female resting in bed, NAD HEENT: head normocephalic, atraumatic, mmm, trachea midline Resp; CTA, slightly diminished in the bases, no w/c/r, on room air CV: RRR, +systolic murmur, no significant LE edema/calf tenderness, pulses palpable, royal hose/SCDs in place GI: +BS throughout, slight distension, NT : jean-baptiste draining clear yellow urine MSK/Neuro: dressing c/d/i, CLIVE w/ bloody drainage, NVI, plantar/dorsiflexion equal, calves nontender Psych: AOx3, cooperative with exam Results & Data Results & Data Vital Signs (Past 12 Hours) Vital Signs Temp Pulse Pulse Resp BP BP Pulse Ox 12/30/22 07:40 37.0 C 78 18 100/55 L 91 12/30/22 03:04 36.9 C 89 16 119/68 92 12/29/22 22:44 36.9 C 92 H 16 107/57 L 94 12/29/22 20:46 99 H 134/73 O2 Del Method 12/30/22 07:40 Room Air 12/30/22 03:04 Room Air 12/29/22 22:44 Room Air 12/29/22 20:46 Laboratory Results 12/30/22 12/30/22 12/30/22 Range/Units 07:43 07:28 07:28 WBC 8.40 (4.8-10.8) K/ul RBC 4.20 (4.20-5.40) M/uL Hgb 11.4 L (12.0-16.0) g/dl Hct 34.7 L (37.0-47.0) % MCV 82.6 (80.0-100.0) fL MCH 27.1 (25.0-34.0) pg MCHC 32.9 (32.0-36.0) g/dL RDW Std Deviation 39.9 (36.4-46.3) fL RDW Coeff of Марина 13.2 (11.5-14.5) % Plt Count 227 (130-400) K/uL MPV 10.2 (9.4-12.4) fL Immature Gran % (Auto) 0.4 % Neut % (Auto) 69.5 % Lymph % (Auto) 21.3 % Rush % (Auto) 8.5 % Eos % (Auto) 0.2 % Baso % (Auto) 0.1 % Neut # (Auto) 5.84 (1.40-6.50) K/uL Lymph # (Auto) 1.79 (1.20-3.40) K/uL Rush # (Auto) 0.71 H (0.11-0.59) K/uL Eos # (Auto) 0.02 (0.00-0.50) K/uL Baso # (Auto) 0.01 (0.00-0.20) K/uL Immature Gran # (Auto) 0.03 (0.01-0.20) K/uL Sodium 136 (136-145) mmol/L Potassium 3.8 (3.5-5.1) mmol/L Chloride 104 (98-107) mmol/L Carbon Dioxide 28 (21-32) mmol/L Anion Gap 4 (3-11) BUN 11 (6-23) mg/dl Creatinine 0.96 (0.6-1.2) mg/dl Est Cr Clr Drug Dosing 52.9 ml/min Est GFR ( Amer) 70.4 ml/min Est GFR (Non-Af Amer) 60.8 ml/min BUN/Creatinine Ratio 11.5 (10-20) Glucose 106 H (70-99(Fasting)) mg/dl POC Glucose 98 (70-99) mg/dl Calcium 8.7 (8.6-10.3) mg/dl 12/29/22 12/29/22 12/29/22 Range/Units 20:54 17:09 09:55 WBC (4.8-10.8) K/ul RBC (4.20-5.40) M/uL Hgb (12.0-16.0) g/dl Hct (37.0-47.0) % MCV (80.0-100.0) fL MCH (25.0-34.0) pg MCHC (32.0-36.0) g/dL RDW Std Deviation (36.4-46.3) fL RDW Coeff of Марина (11.5-14.5) % Plt Count (130-400) K/uL MPV (9.4-12.4) fL Immature Gran % (Auto) % Neut % (Auto) % Lymph % (Auto) % Rush % (Auto) % Eos % (Auto) % Baso % (Auto) % Neut # (Auto) (1.40-6.50) K/uL Lymph # (Auto) (1.20-3.40) K/uL Rush # (Auto) (0.11-0.59) K/uL Eos # (Auto) (0.00-0.50) K/uL Baso # (Auto) (0.00-0.20) K/uL Immature Gran # (Auto) (0.01-0.20) K/uL Sodium (136-145) mmol/L Potassium (3.5-5.1) mmol/L Chloride (98-107) mmol/L Carbon Dioxide (21-32) mmol/L Anion Gap (3-11) BUN (6-23) mg/dl Creatinine (0.6-1.2) mg/dl Est Cr Clr Drug Dosing ml/min Est GFR ( Amer) ml/min Est GFR (Non-Af Amer) ml/min BUN/Creatinine Ratio (10-20) Glucose (70-99(Fasting)) mg/dl POC Glucose 128 H 159 H 190 H (70-99) mg/dl Calcium (8.6-10.3) mg/dl Diagnostic Findings Lumbar Spine X-Ray 12/29/22 00:00 FL lumbar spine 2-3V CLINICAL HISTORY: L4-S1 DECOMP/FUSION COMPARISON STUDY: Lumbar spine MRI September 17, 2019. Lumbar spine radiographs October 08, 2021. FLUOROSCOPY TIME: 25 seconds. porfirio De La Garza: 21.69 mGy FLUOROSCOPIC IMAGES: 2 FINDINGS: Fluoroscopy was provided during L4-L5 and L5-S1 discectomies with interbody spacer placement. Posterior decompression with bilateral pedicle screws at the L4, L5 and S1 levels is noted. Linear radiodensity projecting over the canal at the L4-L5 level is likely postsurgical. IMPRESSION: Fluoroscopy provided during L4-L5 and L5-S1 discectomies with posterior decompression and bilateral pedicle screw fusion. ACT 112: Negative or not required by law. Electronically signed by: Rich Lewis M.D. 12/29/2022 10:00 AM PG Care Time/CCT Total # of Minutes Spent Total Time Spent with Patient: Total time spent is greater than 50% in coordination of care (as documented) at patient's floor/unit and/or counseling patient: Coding Level of Care Code 22121 SUB INP/OBS CARE 2/35MIN Diagnoses Status post lumbar spinal fusion Z98.1 HOCM (hypertrophic obstructive cardiomyopathy) I42.1 History of CVA (cerebrovascular accident) Z86.73 Controlled type 2 diabetes mellitus E11.9 Benign essential hypertension I10 Hyperlipidemia E78.5 Depression F32.9 Chronic GERD K21.9
[2022-12-30] MEDS: dexAMETHasone 6 MG in SYRINGE 0 ML IV SCH (08:19)
[2022-12-30] MEDS: METOPROLOL SUCC 50MG EXT REL TAB PO SCH (08:23)
[2022-12-30 08:26] LABS: BUN Creatinine Ratio 11.5 (10-20); Calcium 8.7 mg/dl (8.6-10.3); Creatinine Clr Calc Pharmacy 52.9 ml/min; Est GFR (African American) 70.4 ml/min; Est GFR (Non-African American) 60.8 ml/min; Potassium 3.8 mmol/L (3.5-5.1)
[2022-12-30] MEDS: INSULIN ASPART PER UNIT CHARGE SC SCH ×4 (09:18→20:26)
--- NOTE | 2022-12-30 11:46 | Orthopedic Progress Note ---
Date of Service December 30, 2022 Assessment & Plan (1) Lumbar radiculopathy: Plan: At this time we will continue physical therapy monitor her CLIVE output hopefully discharge home this weekend. Admission and Anticipated Discharge Date Admission Date: December 29, 2022 Subjective Back pain controlled leg pain improved Physical Exam Physical Exam: Patient is in the chair at the bedside. Is comfortable. Discussing the testing. Results & Data Vital Signs (Past 12 Hours) Vital Signs Temp Pulse Resp BP BP Pulse Ox O2 Del Method 12/30/22 11:33 36.8 C 78 19 133/69 96 Room Air 12/30/22 08:22 80 123/68 12/30/22 07:40 37.0 C 78 18 100/55 L 91 Room Air 12/30/22 03:04 36.9 C 89 16 119/68 92 Room Air
[2022-12-30] MEDS: EZETIMIBE 10 MG TAB PO SCH (13:16)
[2022-12-30] MEDS: FLUoxetine HCL 20 MG CAP PO SCH ×2 (13:17→20:16)
[2022-12-30] MEDS ORDERED: LOSARTAN POTASSIUM 50 MG TAB PO SCH (14:00)
[2022-12-30] MEDS: PANTOprazole 40 MG TAB PO SCH (20:17)
[2022-12-30] MEDS: DOCUSATE SODIUM/SENNA 50/8.6MG TAB PO SCH (20:17)
[2022-12-31] MEDS: POLYETHYLENE (MIRALAX) 17 GM PACK PO SCH (05:57)
[2022-12-31] MEDS: oxyCODONE HCL IR 5 MG TAB (IMMEDIATE RELEASE) PO PRN ×2 (08:00→12:10)
--- NOTE | 2022-12-31 08:24 | Hospitalist Progress Note ---
Date of Service December 31, 2022 Assessment & Plan (1) Status post lumbar spinal fusion: Plan: POD#2 s/p 1. Lumbar decompression bilaterally facetectomies and foraminotomies L3-L4, L4-5 and L5-S1.. 2 posterior spinal fusion L4-L5 L5-S1. #3 placed posterior instrumentation L4-S1. #4 interbody fusion L4-5 L5-S1. #5 placement of Spira 12 x 26 mm cage at L4-5 and 10 x 26 mm cage L5-S1. #6 placement of locally harvested morselized autograft posterior gutters. #7 placement I factor amount of the test interbody space and posterior gutters. with Dr Gonzales on 12/29. WBC wnl, afebrile On decadron IV daily Hgb 14--> 11.4, suspect acute blood loss anemia from surgery as well as dilutional on continued IVF. IVF discontinued this morning EBL 100cc, CLIVE output 245cc --> decreased to 115cc Pain control/bowel regimen/PT/OT/DVT prophylaxis per primary service Rec resuming plavix as soon as possible when bleeding risk acceptable by primary service Patient reporting feeling well, worked with therapy, hopeful for discharge home today if ok with primary service. Messaged Dr Gonzales about patient wishes. Hospitalist service will sign off at this time. Please call with any questions/concerns. (2) HOCM (hypertrophic obstructive cardiomyopathy): Plan: Follows with [facility] [place] [facility] Awaiting outpatient Cardiac MRI for further assessment per last Cardiology Clinic note from 12/19 IVF continued through this morning given EBL/avoid dehydration/possible HOCM Losartan resumed post-op, BP stable and 144/73 this morning, no issues with lightheadedness/dizziness/etc Remains on metoprolol (3) History of CVA (cerebrovascular accident): Plan: Would recommend restarting plavix PAT when the primary team is comfortable from a bleeding risk perspective (4) Controlled type 2 diabetes mellitus: Plan: A1c 6.8 on last check, diet controlled BSG AC/HS while inpatient, BSGs acceptable and will monitor on SSI while inpatient Continue DM diet Monitor BSGs (5) Benign essential hypertension: Plan: Stable , improved remains on metoprolol, losartan resumed as above and BPs remaining stable (6) Hyperlipidemia: Plan: Continue statin (7) Depression: Plan: Continue fluoxetine (8) Chronic GERD: Plan: Continue pantoprazole as already ordered by primary team Plan Thank you for allowing hospitalist service to participate in the care of Ms Avery am. Hospitalist service will sign off at this time. Please call with questions/concerns in meantime Admission and Anticipated Discharge Date Admission Date: December 29, 2022 Supervising Physician Co-Signing Physician Notes The patient was not seen by me. The chart was reviewed. Case discussed with LILIAN Thomas. Agree with assessment and plan Subjective Patient evaluated this morning, doing well. Pain much controlled. Passing gas, no abdominal pain/nausea. No fever/chills, chest pain or shortness of breath. CLIVE output decreasing. She is inquiring about possible discharge today. Discussed will let Dr Gonzales doing well from medical standpoint but determine timing for discharge to primary service. Questions/concerns addressed at this time. Review of Systems Review of Systems: All systems reviewed & are unremarkable except as noted in HPI & below Physical Exam Physical Exam: General: WD/WN female resting in bed, NAD HEENT: head normocephalic, atraumatic, mmm, trachea midline Resp; CTA, no w/c/r, on room air CV: RRR, +systolic murmur, no significant LE edema/calf tenderness, pulses palpable, royal hose/SCDs in place GI: +BS throughout, slight distension, NT : no jean-baptiste MSK/Neuro: dressing c/d/i, CLIVE w/ bloody drainage, NVI, plantar/dorsiflexion equal, calves nontender Psych: AOx3, cooperative with exam Results & Data Results & Data Vital Signs (Past 12 Hours) Vital Signs Temp Pulse Resp BP Pulse Ox O2 Del Method 12/31/22 07:44 36.9 C 81 18 144/73 H 97 Room Air Laboratory Results 12/31/22 12/30/22 12/30/22 Range/Units 07:46 20:16 16:48 Sodium (136-145) mmol/L Potassium (3.5-5.1) mmol/L Chloride (98-107) mmol/L Carbon Dioxide (21-32) mmol/L Anion Gap (3-11) BUN (6-23) mg/dl Creatinine (0.6-1.2) mg/dl Est Cr Clr Drug Dosing ml/min Est GFR ( Amer) ml/min Est GFR (Non-Af Amer) ml/min BUN/Creatinine Ratio (10-20) Glucose (70-99(Fasting)) mg/dl POC Glucose 99 175 H 213 H (70-99) mg/dl Calcium (8.6-10.3) mg/dl 12/30/22 12/30/22 12/30/22 Range/Units 11:30 07:43 07:28 Sodium 136 (136-145) mmol/L Potassium 3.8 (3.5-5.1) mmol/L Chloride 104 (98-107) mmol/L Carbon Dioxide 28 (21-32) mmol/L Anion Gap 4 (3-11) BUN 11 (6-23) mg/dl Creatinine 0.96 (0.6-1.2) mg/dl Est Cr Clr Drug Dosing 52.9 ml/min Est GFR ( Amer) 70.4 ml/min Est GFR (Non-Af Amer) 60.8 ml/min BUN/Creatinine Ratio 11.5 (10-20) Glucose 106 H (70-99(Fasting)) mg/dl POC Glucose 147 H 98 (70-99) mg/dl Calcium 8.7 (8.6-10.3) mg/dl PG Care Time/CCT Total # of Minutes Spent Total Time Spent with Patient: Total time spent is greater than 50% in coordination of care (as documented) at patient's floor/unit and/or counseling patient: Coding Level of Care Code 67990 SUB INP/OBS CARE 06/01MIN Diagnoses Status post lumbar spinal fusion Z98.1 HOCM (hypertrophic obstructive cardiomyopathy) I42.1 History of CVA (cerebrovascular accident) Z86.73 Controlled type 2 diabetes mellitus E11.9 Benign essential hypertension I10 Hyperlipidemia E78.5 Depression F32.9 Chronic GERD K21.9
[2022-12-31] MEDS: dexAMETHasone 6 MG in SYRINGE 0 ML IV SCH (09:07)
[2022-12-31] MEDS: METOPROLOL SUCC 50MG EXT REL TAB PO SCH (09:07)
[2022-12-31] MEDS: INSULIN ASPART PER UNIT CHARGE SC SCH (09:08)
--- NOTE | 2022-12-31 11:01 | Discharge Summary ---
Date of Service December 31, 2022 Admission HPI Per Admitting Provider This is a 59-year-old female presents with chronic persistent back and leg pain after failing course of nonoperative care she is here for surgical intervention. Principal Diagnosis Lumbar spinal stenosis with radiculopathy Discharge Data Allergies Allergy/AdvReac Type Severity Reaction Status Date / Time Penicillins Allergy Severe ANAPHYLAXIS Verified 12/29/22 06:17 Sulfa (Sulfonamide Allergy Severe ANAPHYLAXIS Verified 12/29/22 06:17 Antibiotics) sulfamethoxazole Allergy Intermediate Hives Verified 12/29/22 06:17 [From Bactrim] trimethoprim [From Bactrim] Allergy Intermediate Hives Verified 12/29/22 06:17 simvastatin [From Zocor] AdvReac Intermediate Gastrointestinal Verified 12/29/22 06:17 Upset atorvastatin [From Lipitor] AdvReac Mild Gastrointestinal Verified 12/29/22 06:17 Upset colesevelam [From WelChol] AdvReac Mild Gastrointestinal Verified 12/29/22 06:17 Upset duloxetine [From Cymbalta] AdvReac Mild Anxiety Verified 12/29/22 06:17 ezetimibe [From Zetia] AdvReac Mild Gastrointestinal Verified 12/29/22 06:17 Upset fluvastatin [From Lescol] AdvReac Mild Gastrointestinal Verified 12/29/22 06:17 Upset lovastatin AdvReac Mild Gastrointestinal Verified 12/20/22 13:59 Upset rosuvastatin [From Crestor] AdvReac Mild Gastrointestinal Verified 12/20/22 13:59 Upset Consultations 12/29/22 11:57 Consult Hospitalist Routine Procedures Performed Operation Date: 12/29/22 07:45 Actual Procedures p L4-S1 Decompression and Fusion, Spinal Cord Monitoring(Not Applicable) - Magno Gonzales DO Ordered Studies 12/29/22 [place] lumbar spine 2-3V Routine Hospital Course (1) Lumbar radiculopathy: Patient is a she progressed appropriately. CLIVE drain decrease of bili. I suspect the testing. Pain well controlled. Total Time Total Time Spent Total Time Spent (In Minutes): 20 minutes Discharge Plan Discharge Items Patient Disposition: Home - Self-Care Reason For Visit: Spinal Stenosis, Lumbar Region with Neurogenic Cla Discharge Diagnosis: lumbar spinal stenosis with neurogenic claudication Activity: As commented below Non-emergency contact: Primary Care Provider Call non-emergency contact if: you have any medication questions Follow-up/Referrals: Brennen Romero MD [Primary Care Provider] - 01/10/23 2:00 pm (APPOINTMENT WITH DR POLLACK) Diet: Regular Addtl Attending Provider Instructions: ACTIVITY RECOMMENDATIONS: SELF CARE INSTRUCTIONS AFTER THORACIC/LUMBAR FUSIONS 1. You may walk to your tolerance. It is good exercise for your legs and back. Expect some back and intermittent leg aches and pains. 2. You may perform "counter-top" level activities (make a sandwich, stewart with a project, etc.). 3. No bending or lifting of more than 10 pounds or back twisting of any nature (roll like a log when turning in bed). 4. You may ride in a car for 20-30 minutes at a time. No driving until after your first visit with your doctor. 5. Frequent changes of position and restricting sitting to 30 minutes at a time will help limit the amount of back spasms and stiffness you may experience. 6. You may discontinue the use of ambulatory aids (cane, crutches, etc.) once y our strength and confidence allow. 7. You may primary teaching assistant the shower and let water strike your incision when you arrive home at least once daily. Do not take a tub bath, sit in a hot tub or go into a swimming pool until after your first recheck in the office. SPECIAL CARE INSTRUCTIONS: VERY IMPORTANT TO READ AND REVIEW A. Your surgical incision has been closed with a cosmetic suture under the skin that will dissolve in about 6 weeks. In 14 days, you can use a pair of clean scissors and cut the suture that is left outside of the skin at the ends of your incision. 1. The small skin tapes can be removed 7 days after surgery if they have not fallen off by that point. 2. You may keep the wound open to air as much as possible to promote healing after post-op day number 5 unless told otherwise by your doctor. 3. If you think the wound looks like it is becoming infected (redness or worsening drainage) and/or you are experiencing fever, chill or worsening back pain and muscle spasms, contact the office so that we may evaluate you as soon as possible. B. Complications are uncommon, but please contact us if you have any signs or symptoms of: 1. wound infection (fever higher than 102.5 degrees F, redness, separation of wound, drainage, or increasing pain from the incision) 2. blood clots in legs (pain, swelling, redness and warmth in legs) 3. urinary tract infection (fever higher than 102.5 degrees F, burning upon urination or increased frequency of urination) 4. nerve problems (inability to walk on your toes or heels, numbness, loss of bowel or bladder control) 5. any other symptoms that concern you C. Please call the office at if you have any concerns or questions about your operation or recovery. D. No smoking! Smoking drastically decreases the chance of a solid fusion. E. Do not take any anti-inflammatory medications (Indocin, Advil, Motrin, Aspirin, Naprosyn, etc.) as these may inhibit the chance of a solid fusion. Tylenol is okay to take for pain. MANAGING PAIN AFTER SPINAL SURGERY 1. Narcotic medication is intended for short-term use and will be provided for surgical pain. Surgical pain usually lasts for a period of 4-6 weeks. Narcotic medication includes Percocet, Vicodin, Darvocet, Tylenol #3 or Lortab. 2. Longer-term pain is more appropriately treated with non-narcotic medication such as Tylenol ES. 3. Muscle spasm is not appropriately treated with narcotics. Muscle relaxers such as Soma, Flexeril or Skelaxin can be used along with Tylenol ES. 4. Remember that we all live with some "aches and pains". This is not unusual or uncommon after an injury or as we get older. a. Back pain is expected and may include muscle spasms for 4 to 6 weeks after surgery. The pain should gradually improve. If the pain worsens for no apparent reason, please contact the office. b. Intermittent leg pain may also be experienced and should not be concerned about unless it worsens for no apparent reason. If so, please contact the office. 5. We will provide appropriate medication within the normal guidelines of their prescribed use. We will also be very cautious and aware of potential abuse and extended duration of patients' medication needs. a. Pain medications are for your comfort and to assist with sleep and rest so that the tissue can heal. They are not provided in order to return to normal activity and should not be used through the day. To do so or worsening pain at night can result from ongoing tissue damage and development of tolerance to the prescribed medicine. 6. Please allow 2-3 days to process refills. Prescriptions will not be mailed but must be picked up at the office. FOLLOW UP VISIT: Keep your scheduled follow-up appointment. Any questions, please call the office at . Pending Studies at Discharge: No Stand-Alone Forms: [facility] [employer], Smoking Cessation Medications and DC Order Prescriptions: New tramadol 50 mg tablet 50 mg PO Q6H PRN (Reason: pain, moderate) Qty: 30 0RF oxycodone 5 mg tablet 5 mg PO Q6H PRN (Reason: pain) Qty: 30 0RF Continued cyclobenzaprine 5 mg tablet 5 mg PO TID PRN (Reason: muscle spasm) Qty: 90 1RF metoprolol succinate 50 mg tablet extended release 24 hr 50 mg PO DAILY Qty: 30 5RF fluoxetine 20 mg tablet 40 mg PO BID Qty: 360 3RF Patient Comments: LUNCH AND BEDTIME Rx Instructions: administer in the morning and at noon/midday (DME) OneTouch Ultra Blue Test Strip strip See Dose Instructions .ROUTE .MEDSUPPLY Qty: 100 5RF Dose Instruction: As directed Rx Instructions: check blood sugar one daily alternating times as directed (DME) lancets [OneTouch Delica Plus Lancet] 33 gauge misc See Dose Instructions .ROUTE .MEDSUPPLY Qty: 100 3RF Dose Instruction: As directed Rx Instructions: checke blood sugars once daily as directed alternating times tramadol 50 mg tablet See Rx Instructions PO Q6H PRN (Reason: pain) Qty: 240 0RF Rx Instructions: 1-2 tabs orally every 6 hours PRN; rizatriptan [Maxalt] 10 mg tablet 10 mg PO DAILY PRN (Reason: Migraine Headache) Qty: 30 3RF clopidogrel 75 mg tablet 75 mg PO QPM pantoprazole 40 mg tablet,delayed release (DR/EC) 40 mg PO QPM pitavastatin calcium 4 mg tablet 4 mg PO HS losartan 100 mg tablet 100 mg PO .COMPLEX Rx Instructions: 100 mg orally afternoon; ezetimibe 10 mg tablet 10 mg PO .COMPLEX Rx Instructions: 10 mg orally afternoon; cyanocobalamin (vitamin B-12) 1,000 mcg/mL Syringe 1,000 mcg UD Rx Instructions: SQ q 4 months Discharge Orders: Discharge Order (Routine); Ordered 12/31/22 Ordered By: Magno Gonzales Admission Data Admit Date/Time: 12/29/22 09:51 Attending Provider: Magno Gonzales Admit Provider: Magno Gonzales Primary Care Provider: Brennen Romero Other Providers: Prakash Ching ; Nabil Hernadez
== END 2022-12-31 12:33 | disposition home or self-care (01) | DRG 454 ==
LOC: ASU 05:53 → PACUINP 09:51 → 3N 13:02